=== PATIENT | male | born 1985 | race Caucasian/White ===

== ENCOUNTER 2023-06-24 19:58 | Outpatient (REF) | payer SELFPAY ==
[2023-06-24 19:59] VITALS: BP 146/107; PULSE 80; RESP 16; TEMP 36.3; O2SAT 98; BMI 22.5
--- NOTE | 2023-06-24 20:19 | RAD_ITS ---
STUDY: X-RAY - LEFT RADIUS AND ULNA REASON FOR EXAM: Male, 37 years old. laceration TECHNIQUE: 2 view(s) of the forearm. COMPARISON: None. FINDINGS: There is no demonstrated soft tissue swelling. Normal visualized radius. Normal visualized ulna. RAD/Forearm 2 Views IMPRESSION: Normal x-ray examination of the radius and ulna. Electronically Signed: Perez Matias MD at 20:58 EDT ,
--- NOTE | 2023-06-24 20:23 | EDS_ITS ---
HPI History of Present Illness Chief Complaint: Laceration Narrative Narrative: 37-year-old male was pounding on someone's window when it broke and his left forearm went through the glass causing [address]acer[address] arrived and patient was also evaluated paramedics who bandaged it to stop the bleeding. Patient denies numbness or tingling of the extremity. He is right-hand dominant. His believes his tetanus is up-to-date. PFSH PFSH Medical History no medical history Home Medications ?Medication ?Instructions ?Recorded ?Last Taken ?Type NK 06/24/23 Unknown History Allergy/AdvReac Type Severity Reaction Status Date / Time No Known Allergies Allergy Verified 06/24/23 19:59 Surgical History no surgical history Social History Smoking Status: Current every day smoker tobacco type: cigarettes ROS ROS ED ROS Narrative Neuro: Negative for motor/sensory dysfunction. Skin: Positive for lacerations. Musc: Negative for joint pain. EXAM Physical Exam Narrative Exam Narrative: CONST: Patient sitting in no acute distress. EYES: Normal inspection. NECK: Normal inspection. SKIN: 3 cm laceration on ulnar aspect left distal forearm. 4 cm linear laceration on the dorsal mid forearm with slow active bleeding. EXTREMITIES: Normal appearance. Full ROM of left upper extremity, no bony tenderness, 2+ radial pulse, normal motor and sensory function in median radial and ulnar distributions. NEURO: Alert and answering questions appropriately. PSYCH: Normal affect. Const Vital Signs: 06/24/23 19:59 06/24/23 21:05 Temperature 97.3 F L 97 F L Temperature Source Temporal Pulse Rate 80 73 Respiratory Rate 16 18 Blood Pressure 146/107 H 139/70 H Blood Pressure Mean 120 93 Pulse Ox 98 99 PROC Procedures Lacerations left ulnar distal forearm: Length: 3 cm Depth: Sub Q Shape: Linear Prep: Sterile Conditions Laceration repair: Lidocaine with epi and Wound explored Irrigated (ml): 100 Number of Sutures/[place]: 4 Suture Information: Ethilon and 5-0 left dorsal mid forearm: Length: 4 cm Depth: Sub Q Shape: Linear Prep: Sterile Conditions Laceration repair: Irrigated and Lidocaine with epi Irrigated (ml): 100 Number of Sutures/[place]: 4 Suture Information: Ethilon, Simple and 5-0 MDM MDM MDM Narrative Medical decision making narrative: Patient has 2 lacerations on his left forearm from breaking a glass window. Left upper extremity is neurovascularly intact and x-ray shows no fracture or evidence of foreign body. Both lacerations were closed with 4 simple interrupted sutures each. See procedure note for details. Patient believes his tetanus is up-to-date. Wound care instructions were given and he was discharged in stable condition. Radiography Diagnostic Testing: Clinical Impression(s) from Imaging Studies Forearm X-Ray 06/24/23 20:19 IMPRESSION: Normal x-ray examination of the radius and ulna. Electronically Signed: Perez Matias MD at 20:58 EDT , ED attending interpretation of right forearm shows no fracture or dislocation and no evidence of foreign body. Discharge Plan Admission Attending Provider: Dhaval Jackson Primary Care Provider: NOT,DEFINED Instructions Patient Instructions: ED Laceration Extremity Additional Instructions / Restrictions: There are 4 stitches in each wound for total of 8 that will need removed in 1 week. Return if any signs of infection develop like redness, swelling, pus, or fever. Discharge Orders/Prescriptions Prescriptions: No Action NK Referrals / Follow Up: NOT,DEFINED [Primary Care Provider] - Disposition Disposition (needs filled in before D/C Order can be placed): Home, Self Care
[2023-06-24] MEDS: Ibuprofen 600 MG Tablet PO (20:26)
[2023-06-24 21:05] VITALS: BP 139/70; PULSE 73; RESP 18; TEMP 36.1; O2SAT 99
== END 2023-06-24 21:11 | disposition home or self-care (01) ==
LOC: ED 19:58
PROVIDERS: Visit Provider Emergency Medicine
DX: S51.812A Laceration without foreign body of left forearm, initial encounter (principal); F17.210 Nicotine dependence, cigarettes, uncomplicated; W25.XXXA Contact with sharp glass, initial encounter
CPT/HCPCS: 73090